=== PATIENT | male | born 1995 | race African-American/Black ===

== ENCOUNTER 2020-01-10 16:56 | Emergency (ER) | payer SELFPAY ==
[~2020-01-10] VITALS: Ht 182.9 cm; Wt 70.0 kg
[2020-01-10 16:58] VITALS: BP 101/64
== END 2020-01-10 17:59 | disposition home or self-care (01) ==
LOC: ED 17:50
DX: J45.31 Mild persistent asthma with (acute) exacerbation (principal); R06.02 Shortness of breath; J45.909 Unspecified asthma, uncomplicated; F17.200 Nicotine dependence, unspecified, uncomplicated
CPT/HCPCS: 93005; 99283; J7512